=== PATIENT | female | born 1960 | race Caucasian/White ===

== ENCOUNTER → 2016-06-14 | Outpatient (CLI) | payer OTHER ==
--- NOTE | 2016-06-14 12:03 | REP ---
MRI LUMBAR SPINE WITHOUT CONTRAST: HISTORY: Bilateral leg numbness. There is no disc bulge or herniation at the L1-2 through L3-4 levels. The nerves exit the neural foramina without compression. A diffuse disc bulge is present at the L4-5 level. There is minimal compression of the thecal sac. There is hypertrophy of the posterior articulating facets. The L4 nerves exit the neural foramina without compression. A diffuse disc bulge is present at the L5-S1 level. There is minimal compression of the thecal sac. There is hypertrophy of the posterior articulating facets. The L5 nerves exit the neural foramina without compression. The conus medullaris is normal in appearance terminating at the level of the L1-2 intervertebral discs. Normal signal intensity is present in the lumbar vertebral bodies. A 1.9 cm cyst is present in the liver. The uterus is enlarged and heterogeneous in signal intensity. This is likely secondary to fibroids. IMPRESSION: 1. Diffuse disc bulges at the L4-5 and L5-S1 levels with minimal thecal sac compression. 2. 1.9 cm liver cyst. 3. The uterus is enlarged and heterogeneous in signal intensity likely secondary to fibroids. Ultrasound of the liver and uterus may be helpful for further evaluation. Signed by Gamaliel Liang MD 06/14/2016 12:06 P
== END ==
LOC: M RAD 09:33
PROVIDERS: ATTEND Physician Assistant
DX: M51.26 Other intervertebral disc displacement, lumbar region (principal); Q44.6 Cystic disease of liver; N85.2 Hypertrophy of uterus